=== PATIENT | male | born 1955 | race Caucasian/White ===

== ENCOUNTER 2021-03-29 05:47 | Day surgery (SDC) | payer OTHER ==
[~2021-03-29 05:47] MED LIST: Lactated Ringers 1,000 ML IV SCH; Lidocaine 1%/Sod Bicarbonate in NS 8.4% 1 ML Syringe IDERM PRN; Sodium Chloride 0.9% 10 ML Syringe FLUSH PRN
[2021-03-29] MEDS ORDERED: Acetaminophen 325 MG Tab PO SCH (06:00)
[2021-03-29] MEDS ORDERED: oxyCODONE ER 10 MG TAB.ER PO SCH (06:00)
[2021-03-29] MEDS ORDERED: Pregabalin 25 MG Cap PO SCH (06:00)
--- NOTE | 2021-03-29 06:37 | PCM.PREANE ---
Preanesthetic Assessment - Procedure Proposed Procedure: Rt ZENAIDA - Anesthesia/Transfusion/Family Hx Anesthesia History: Prior Anesthesia Without Reaction Transfusion History: No Prior Transfusion(s) - Review of Systems General: No Symptoms Pulmonary: No Symptoms Cardiovascular: No Symptoms Gastrointestinal: No Symptoms Neurological: No Symptoms Other: Reports: None - Physical Assessment NPO Status Date: 03/28/21 NPO Status Time: 22:00 Vital Signs: 155/88 HR 82 RR 16 SpO2 98 T 97 F ASA Class: 2 Mental Status: Alert & Oriented x3 Airway Class: Mallampati = 2 Dentition: Reports: Normal Dentition ROM/Head Extension: Full Lungs: Clear to Auscultation, Normal Respiratory Effort Cardiovascular: Regular Rate, Regular Rhythm - Allergies Allergies/Adverse Reactions: Allergies Allergy/AdvReac Type Severity Reaction Status Date / Time No Known Allergies Allergy Verified 03/28/21 14:13 - Acknowledgements Anesthesia Type Planned: Spinal Pt an Appropriate Candidate for the Planned Anesthesia: Yes Alternatives and Risks of Anesthesia Discussed w Pt/Guardian: Yes Pt/Guardian Understands and Agrees with Anesthesia Plan: Yes PreAnesthesia Questionnaire HEENT History: Reports: Impaired Vision, Other (See Below) Other HEENT History: wears glasses Cardiovascular History: Reports: Hypertension Respiratory History: Reports: None Gastrointestinal History: Reports: None Genitourinary History: Reports: Renal Calculus ROOF TILE LAYER History: Reports: None Psychiatric History: Reports: None Endocrine/Metabolic History: Reports: None Hematologic History: Reports: None Immunologic History: Reports: None Oncologic (Cancer) History: Reports: None Dermatologic History: Reports: None - Infectious Disease History Infectious Disease History: Reports: None - Past Surgical History Head Surgeries/Procedures: Reports: None Cardiovascular Surgical History: Reports: None Respiratory Surgical History: Reports: None GI Surgical History: Reports: Colonoscopy Female Surgical History: Reports: None Male Surgical History: Reports: None Endocrine Surgical History: Reports: None Neurological Surgical History: Reports: Other (See Below) Other Neurological Surgeries/Procedures: neck surgery Musculoskeletal Surgical History: Reports: Knee Replacement Oncologic Surgical History: Reports: None Dermatological Surgical History: Reports: None - SUBSTANCE USE Tobacco Use Status *Q: Never Tobacco User Recreational Drug Use History: No - HOME MEDS Home Medications: Home Meds Lisinopril/Hydrochlorothiazide [Lisinopril-HCTZ 10-12.5 MG] 1 tab PO DAILY 08/15/20 [History] Multivitamin 1 tab PO DAILY 03/28/21 [History] - CURRENT (IN HOUSE) MEDS Current Meds: Current Medications Acetaminophen (Acetaminophen 325 Mg Tab) 975 mg PO ONETIME NADJA Stop: 03/29/21 14:00 Morphine Sulfate 8 mg/Epinephrine HCl 0.3 mg/Cefuroxime Sodium 750 mg/Ketorolac Tromethamine 30 mg/Sodium Chloride 7.9 ml 0 mg .XX ASDIRECTED PRN PRN Reason: Pain Stop: 03/29/21 18:00 Lactated Ringer's (Ringers, Lactated) 1,000 mls @ 125 mls/hr IV ASDIRECTED NADJA Stop: 03/29/21 23:00 Lidocaine/Sodium Bicarbonate (Lidocaine 1%/Sod Bicarbonate In Ns 8.4% 1 Ml Syringe) 0.25 ml IDERM ONETIME PRN PRN Reason: Prior to IV Start Stop: 03/29/21 23:00 Oxycodone HCl (Oxycodone Er 10 Mg Tab.Er) 10 mg PO ONETIME NADJA Stop: 03/29/21 14:00 Pregabalin (Pregabalin 25 Mg Cap) 50 mg PO ONETIME NADJA Stop: 03/29/21 14:00 Sodium Chloride (Sodium Chloride 0.9% 10 Ml Syringe) 10 ml FLUSH ASDIRECTED PRN PRN Reason: Keep Vein Open Stop: 03/29/21 23:00
[2021-03-29] MEDS ORDERED: Midazolam 1 MG/ML 2 ML SDV ONE (06:48)
[2021-03-29] MEDS ORDERED: fentaNYL 100 MCG/2 ML SDV ONE (06:48)
[2021-03-29] MEDS ORDERED: Propofol 200 MG/20 ML SDV ONE ×2 (06:48→08:35)
[2021-03-29] MEDS ORDERED: ceFAZolin 1 GM Vial ONE (06:51)
[2021-03-29] MEDS ORDERED: Lidocaine 1% 4 ML ONE (06:56)
[2021-03-29] MEDS ORDERED: HYDROmorphone 0.5 MG/0.5 ML Syringe IVPUSH PRN (07:45)
[2021-03-29] MEDS ORDERED: fentaNYL 100 MCG/2 ML SDV IVPUSH PRN (07:45)
[2021-03-29] MEDS ORDERED: ePHEDrine 50 MG/ML SDV ONE (07:48)
[2021-03-29] MEDS ORDERED: Lactated Ringers 1,000 ML ONE (08:04)
[2021-03-29] MEDS: Vancomycin 1 GM SDV ONE ×2 (08:28→08:38)
[2021-03-29] MEDS: Morphine 8 MG, EPINEPHrine 0.3 MG, Cefuroxime 750 MG, Ketorolac 30 MG, Sodium Chloride ... PRN ×10 (08:29→08:38)
[2021-03-29] MEDS ORDERED: oxyCODONE 5 MG Tab PO PRN (08:58)
[2021-03-29] MEDS ORDERED: Cyclobenzaprine 10 MG Tab PO PRN (08:58)
--- NOTE | 2021-03-29 09:20 | PCM.POSTAN ---
POST ANESTHESIA ASSESSMENT - MENTAL STATUS Mental Status: Alert, Oriented - VITAL SIGNS Vital Signs: Last Vital Signs Temp 97.4 F 03/29/21 09:05 Pulse 84 03/29/21 09:05 Resp 12 03/29/21 09:05 BP 120/75 03/29/21 09:05 Pulse Ox 95 03/29/21 09:05 - RESPIRATORY Respiratory Status: Respiratory Rate WNL, Airway Patent, O2 Saturation Stable - CARDIOVASCULAR CV Status: Pulse Rate WNL, Blood Pressure Stable - GASTROINTESTINAL GI Status: No Symptoms - PAIN Pain Score: 0 (post SAB) - POST OP HYDRATION Hydration Status: Adequate & Stable
--- NOTE | 2021-03-29 10:06 | CR ---
Pelvis and right hip: AP view of the pelvis was obtained as well as crosstable lateral view of the right hip. Comparison: Prior CT right hip study of 03/14/21. Right hip prosthesis is noted. Components are aligned. Soft tissue air is seen from the surgical procedure. Impression: 1. Satisfactory postoperative radiographic appearance of recently placed right hip prosthesis. Diagnostic code #2
--- NOTE | 2021-03-29 11:11 | PCM48HPAN ---
Post Anesthesia Note - EVALUATION WITHIN 48HRS OF ANESTHETIC Vital Signs in Normal Range: Yes Patient Participated in Evaluation: Yes Respiratory Function Stable: Yes Airway Patent: Yes Cardiovascular Function Stable: Yes Hydration Status Stable: Yes Pain Control Satisfactory: Yes Nausea and Vomiting Control Satisfactory: Yes Mental Status Recovered: Yes Vital Signs: Last Vital Signs Temp 97.5 F 03/29/21 09:46 Pulse 72 03/29/21 10:30 Resp 17 03/29/21 10:30 BP 135/81 03/29/21 10:30 Pulse Ox 93 L 03/29/21 10:30
--- NOTE | 2021-04-09 16:29 | PCM.OPNOTE ---
- General Post-Op/Procedure Note Date of Surgery/Procedure: 03/29/21 Operative Procedure(s): right total hip arthroplasty with [employer] robot[employer] Pre Op Diagnosis: right hip osteoarthrosis Post-Op Diagnosis: Same Anesthesia Technique: Local, MAC, Spinal Primary Surgeon: Magdaleno Mcclure Anesthesia Provider: Joey Antonio Assistant Sales Manager: Stephy Field Assistant Sales Manager: Audrey Hill EBL in mLs: 300 Complications: None Condition: Good Free Text/Narrative:: 58 cup 7 36+0
--- NOTE | 2021-04-09 18:02 | OR ---
DATE OF OPERATION: 03/29/2021 SURGEON: Magdaleno Mcclure MD OPERATION PERFORMED: Right total hip arthroplasty with [employer] robotics. PREOPERATIVE DIAGNOSIS: Right hip osteoarthrosis. POSTOPERATIVE DIAGNOSIS: Right hip osteoarthrosis. ANESTHESIA: Local MAC with spinal. ANESTHESIA PROVIDER: Ludivina Bernal. ASSISTANTS: Stephy Field PA-C, and Audrey Hill LPN ESTIMATED BLOOD LOSS: 300 mL. COMPLICATIONS: None. CONDITION: Stable. IMPLANTS: 1. Elo size 58 mm Tritanium II acetabular cup. 2. Elo size 7 Accolade II stem. 3. Elo size 36, +0 Biolox femoral head. DESCRIPTION OF PROCEDURE: The patient was identified in the preoperative holding area. Proper site was marked, identified by the surgeon. The patient was taken back to the operating theater where after adequate anesthesia, the patient was placed in a left lateral decubitus position. Axillary roll was placed. Right hip had pegs placed and were well padded. The gluteal fold was parallel. The hip was then sterilely prepped and draped in usual sterile fashion. OR time-out was performed. The patient received 2 g of IV Ancef. Three small poke hole incisions were then placed over the iliac crest 3 fingerbreadths posterior to the ASIS, and the [place] [employer] robotic array and checkpoints were placed onto the iliac crest. A standard posterior incision was done centered over the greater trochanter. This was taken down to the IT band and gluteal fascia, which was incised along the incisional length. Charnley retractor was then placed. A checkpoint was then placed in the greater trochanter and leg lengths were measured using Elo robotic array. Takedown of the short external rotators as well as capsulotomy was performed from the piriformis to the lesser trochanter. Hip was then dislocated. Neck cut was completed and found to be adequate. Attention was turned to the acetabulum. Anterior and posterior acetabular retractors were placed. Circumferential removal of the labrum as well as pulvinar was done at this time. Checkpoint was placed on the superior rim of the acetabulum and checkpoints were obtained from the iliac crest array. Next 15 points were obtained from intra-articularly in the acetabulum and 15 extra-articular. The 54 mm reamer was then placed on the [employer] robotic arm and was reamed medially. A 58 mm reamer was then placed and was then completed at 45 degrees of abduction and 20 degrees of anteversion. It was found to have a good bony bleeding bed and good ream at this time. The 58 mm cup was placed on the [employer] robotic arm and was impacted into place in 45 degrees of abduction and 20 degrees of anteversion. The 36 flat liner was then impacted into place. Attention was turned to the femur. Box chisel was used out laterally. Starter awl was placed down the canal. Starting with the 0 broach, I was able to broach up to a size 7, which was found to be rotationally and vertically stable. A 36, +0 trial head was placed. The patient had adequate restorationism of leg lengths and stable throughout range of motion. Bone hook was used to dislocate the hip. Trial implants were removed. Size 7 Accolade II stem was then impacted into place with a 36, +0 Biolox femoral head. Hip was then relocated. #5 Ethibond suture was used for closure of short external rotators and capsule. 1 L of pulse lavage irrigation with Ancef was irrigated through the hip along with 400 mL of Irrisept irrigation. Topical tranexamic acid and vancomycin powder were applied. Periarticular injection was completed. #2 barbed suture was used for closure of the IT band and gluteal fascia. 2-0 Vicryl was used subcutaneously and Prineo was used for skin closure. The patient tolerated the procedure well and was sent to the PACU in stable condition. Please note, all [employer] robotic checkpoints and arrays were removed before closure. MMODAL /[id number] AURY
== END 2021-03-29 12:39 | disposition home or self-care (01) ==
LOC: JD.SDS 05:47
PROVIDERS: ATTEND Orthopaedic Surgery
DX: M16.11 Unilateral primary osteoarthritis, right hip (principal); I10 Essential (primary) hypertension; N20.0 Calculus of kidney; Z79.899 Other long term (current) drug therapy; Z98.890 Other specified postprocedural states
CPT/HCPCS: 27130; 36415; 73501; 86850; 86900; 86901; 97116; 97161; A9270; C1713; C1776; J0171; J0690; J0697; J1885; J2250; J2270; J2370; J2704; J3010; J3370; J7120; 01214

== ENCOUNTER 2021-08-13 05:56 | Day surgery (SDC) | payer OTHER ==
[~2021-08-13 05:56] MED LIST changes: +Sodium Chloride 0.9% 10 ML Syringe FLUSH SCH
[2021-08-13] MEDS ORDERED: oxyCODONE ER 10 MG TAB.ER PO SCH (06:00)
[2021-08-13] MEDS ORDERED: Pregabalin 25 MG Cap PO SCH (06:00)
[2021-08-13] MEDS ORDERED: Acetaminophen 325 MG Tab PO SCH (06:00)
[2021-08-13] MEDS ORDERED: Morphine 8 MG, EPINEPHrine 0.3 MG, Cefuroxime 750 MG, Ketorolac 30 MG, Sodium Chloride ... PRN ×5 (06:09)
[2021-08-13] MEDS ORDERED: Propofol 200 MG/20 ML SDV ONE ×3 (06:28→08:00)
[2021-08-13] MEDS ORDERED: Midazolam 1 MG/ML 2 ML SDV ONE (06:29)
[2021-08-13] MEDS ORDERED: Lidocaine 1% 4 ML ONE (06:29)
[2021-08-13] MEDS ORDERED: ceFAZolin 1 GM Vial ONE (06:29)
[2021-08-13] MEDS ORDERED: fentaNYL 100 MCG/2 ML SDV ONE (06:30)
[2021-08-13] MEDS ORDERED: Lactated Ringers 1,000 ML ONE ×2 (07:07→07:54)
[2021-08-13] MEDS ORDERED: ePHEDrine 50 MG/ML SDV ONE (07:15)
[2021-08-13] MEDS ORDERED: Ondansetron 4 MG/2 ML SDV IVPUSH PRN (07:28)
[2021-08-13] MEDS ORDERED: fentaNYL 100 MCG/2 ML SDV IVPUSH PRN (07:28)
[2021-08-13] MEDS ORDERED: diphenhydrAMINE 50 MG/ML SDV IVPUSH PRN (07:28)
[2021-08-13] MEDS ORDERED: Ondansetron 4 MG/2 ML SDV ONE (07:54)
[2021-08-13] MEDS ORDERED: Ketorolac 30 MG/ML SDV ONE (07:54)
[2021-08-13] MEDS: Vancomycin 1 GM SDV ONE ×2 (08:19→13:16)
[2021-08-13] MEDS ORDERED: oxyCODONE 5 MG Tab PO PRN (09:08)
== END 2021-08-13 12:10 | disposition home or self-care (01) ==
LOC: JD.SDS 05:56
PROVIDERS: ATTEND Orthopaedic Surgery
DX: M16.12 Unilateral primary osteoarthritis, left hip (principal); I10 Essential (primary) hypertension; E78.2 Mixed hyperlipidemia; Z79.899 Other long term (current) drug therapy; Z98.890 Other specified postprocedural states
CPT/HCPCS: 0055T; 27130; 36415; 73501; 86850; 86900; 86901; 97161; A9270; C1713; C1776; J0171; J0690; J0697; J1885; J2250; J2270; J2405; J2704; J3010; J3370; J7120; 01214